=== PATIENT | female | born 1985 | race Caucasian/White ===

== ENCOUNTER 2025-05-01 12:10 | Emergency (ER) | payer SELFPAY ==
[2025-05-01 12:16] VITALS: BP 135/81
[2025-05-01 12:17] VITALS: BP 135/81
--- NOTE | 2025-05-01 13:36 | ED.GENMED ---
History of Present Illness
General
Chief Complaint: Withdrawal Symptoms
Source: patient and other
Exam Limitations: none
Time Seen by Provider: 05/01/25 12:49
Nursing documentation reviewed up to this point in time: agreed with
History of Present Illness
History of Present Illness:
Patient is a 40-year-old female with past medical history of IV drug abuse, cirrhosis of the liver brought by [employer] [facility]. Patient was picked up from [place] and scheduled to be brought to [facility] however complained
about feeling that she was in withdrawal. As per skilled nursing sheet from [place] pt last had buprenorphine yesterday. She reports prior to that she was hospitalized 11 days at [facility] and was on 60 mg was only given 8 mg yesterday
Patient reports her face feels that it is burning.
Past History
Past History
ED Past Medical History: Psychiatric (bipolar disorder) and Other (substance abuse history)
ED Past Surgical History: None
Social History
Tobacco: Non-smoker
Alcohol: None
Drug: Former user
Personal: Single
Living: with family
Phy Exam
General Physical Exam
General Presentation: no apparent distress
General age: appears stated age
General Skin: warm and dry
General Habitus: normal
General Mental: alert
General Hydration: appears well hydrated
Cardiovascular Exam
Cardiovascular Exam: regular rate/rhythm, no murmur and normal peripheral pulses
Pulmonary Exam
Pulmonary Exam: lungs clear and no respiratory distress
Neurological Exam
Neurological Exam: alert and oriented x3
Musculoskeletal Exam
Musculoskeletal Exam: full ROM
Skin Exam
Skin Exam: normal color and warm/dry
Psychiatric Exam
Psychiatric Exam: normal mood/affect
Course
Orders/Labs/Results
Orders:
Orders
05/01/25 13:44
Buprenorphine [Subutex] 8 mg SL NOW STA
Vital Signs
Initial and Last Documented VS:
Initial Vital Signs
Temp Pulse Resp BP Pulse Ox
97.9 F 92 12 135/81 100
05/01/25 12:16 05/01/25 12:16 05/01/25 12:16 05/01/25 12:16 05/01/25 12:16
Last Documented Vital Signs
Temp Pulse Resp BP Pulse Ox
97.0 F 94 12 135/81 99
05/01/25 12:17 05/01/25 12:17 05/01/25 12:17 05/01/25 12:17 05/01/25 13:39
Interior Paneler consulted with Physician
Interior Paneler consulted with physician?: Yes
Name of Physician Consulted: Lucila
MDM/Problems Addressed
Differential Diagnosis Includes:
Not limited to encounter for withdrawal symptoms
MDM/Problems Addressed:
Patient is a 40-year-old female brought by [employer]. Patient has a history of polysubstance abuse and feels that she is in withdrawal. She was previously incarcerated in [place] and given 8 mg of Suboxone yesterday nothing today. She is in
no acute distress she is not tachycardic not diaphoretic awake alert no vomiting hallucinations. Vital signs stable. Case reviewed with ED physician will give 1 dose of Suboxone and plan to discharge.
Chronic conditions affecting care:
Polysubstance abuse currently incarcerated
*Pulse Oximetry
SaO2: 99
Oxygen Mode of Delivery: Room air
Patient hypoxic: no
*Critical Care Note
Total Time (30-74mins, 75-104mins- exclusive of procedures): Not Applicable
ED Attending Note
-
Portions of this chart may have been created with voice recognition software.� Occasional wrong word or��sound alike� substitutions may have occurred due to the inherent limitations of voice recognition software.
Discharge Plan
Departure
Patient Disposition: Skilled Nursing
Date of Disposition: 05/01/25
Time of Disposition: 13:53
Patient with high blood pressure during this ER visit?: Yes
Condition: Fair
Covid-19: Not Applicable
Discharge Problem:
Polysubstance abuse
Prescriptions:
No Action
alprazolam 1 MG tablet
1 mg PO TID
Patient Comments:
12/08/21 - last filled #90 tabs for 30 day supply 11/05/21, 08/20/21
dextroamphetamine-amphetamine [Adderall] 20 MG tablet
20 mg PO TID
Patient Comments:
12/08/21 - last filled #90 tabs for 30 day supply 11/03/21, 08/21/21
Referrals:
Marian Pena DO [Family Provider, Family Practice]
Activity Restrictions/Additional Instructions:
Patient was given 8 mg of Subutex here in the ER . Must be evaluated by provider while incarcerated. Return if any worsening of symptoms.
Interventions
Interventions:
*Risk Screen - Suicide Last Done: 05/01/25 12:18
*General Assessment Last Done: 05/01/25 12:18
*Neglect/Abuse Screening Last Done: 05/01/25 12:18
*ED- Fall Risk Assessment Last Done: 05/01/25 12:16
*ED COVID-19 Vaccine History Last Done: 05/01/25 12:18
ED-Psychological Assessment Last Done: 05/01/25 12:16
ED- Neurological Assessment Last Done: 05/01/25 12:16
ED- Cardiac Assessment Last Done: 05/01/25 12:16
ED Swallowing Screen Last Done: 05/01/25 12:16
Discharge Date and Time
Print Language: TURKISH
[2025-05-01] MEDS: SUBUTEX 8 MG SL (14:16)
[2025-05-01] MEDS: MOTRIN 600 MG PO (14:34)
== END 2025-05-01 15:02 ==
LOC: EMR 12:10
PROVIDERS: EMERGENCY PHYSICIAN Emergency Medicine; FAMILY PHYSICIAN Family Medicine
DX: F19.11 Other psychoactive substance abuse, in remission (principal); F31.9 Bipolar disorder, unspecified
CPT/HCPCS: 99285